=== PATIENT | female | born 1980 | race Caucasian/White ===

== ENCOUNTER 2021-06-05 14:55 | Emergency (ER) | payer MEDICAID ==
[~2021-06-05] VITALS: Ht 162.6 cm; Wt 59.0 kg
[2021-06-05] MEDS ORDERED: SODIUM CHLORIDE 0.9% 1,000 ML IV ONE (18:45)
[2021-06-05 19:15] LABS: BASOPHILS % 0.2 % (0.0-2.0); EOSINOPHILS % 0.1 % (0.0-5.0); HEMATOCRIT. 24.2 % (36.0-48.0); LYMPHOCYTES % 7.7 % (20.0-50.0); MEAN CORPUSCULAR HEMOGLOBIN 31.9 pg (28.0-32.0); MEAN CORPUSCULAR VOLUME 96.5 fL (81.0-99.0); MONOCYTES % 5.5 % (2.0-8.0); NEUTROPHILS % 86.5 % (40.0-76.0); PLATELET 324 x1000/uL (130-400); RED BLOOD CELL COUNT 2.51 mill/uL (4.2-5.4); RED CELL DISTRIBUTION WIDTH 15.2 % (11.6-14.6)
[2021-06-05 19:16] LABS: CHLORIDE 113 mEq/L (98-107)
[2021-06-05 19:26] LABS: B-HCG QUANTITATIVE 435 mIU/mL (<3)
[2021-06-05] MEDS ORDERED: KETOROLAC 15MG/ML VIAL IV ONE (19:45)
[2021-06-05 23:30] VITALS: BP 127/78
== END 2021-06-05 23:54 | disposition home or self-care (01) ==
LOC: ER 14:55
DX: O03.9 Complete or unspecified spontaneous abortion without complication (principal); Z98.890 Other specified postprocedural states
CPT/HCPCS: 36415; 76801; 76817; 80053; 84702; 85025; 86850; 86900; 86901; 96361; 96374; 99291; J1885; J7030; 99285

== ENCOUNTER 2021-07-30 12:29 | Emergency (ER) | payer MEDICAID ==
[~2021-07-30] VITALS: Ht 167.6 cm; Wt 67.0 kg
[2021-07-30 12:31] VITALS: BP 118/57
== END 2021-07-30 15:30 | disposition left against medical advice (07) ==
LOC: ER 12:29
DX: Z53.21 Procedure and treatment not carried out due to patient leaving prior to being seen by health care provider (principal)